=== PATIENT | female | born 1970 | race Caucasian/White ===

== ENCOUNTER 2018-08-29 11:50 | Emergency (ER) | payer OTHER ==
[~2018-08-29] VITALS: Ht 154.9 cm; Wt 91.7 kg
[2018-08-29 11:54] VITALS: BP 134/67
[2018-08-29] MEDS: KETOROLAC 60 MG/2 ML VIAL IM ONE (12:36)
[2018-08-29 13:26] VITALS: BP 125/69
== END 2018-08-29 13:26 | disposition home or self-care (01) ==
LOC: MED 11:50
DX: M54.6 Pain in thoracic spine (principal)
CPT/HCPCS: 71045; 96372; 99283; J1885; Q0092; 99284

== ENCOUNTER 2018-12-08 14:34 | Emergency (ER) | payer MEDICAID, OTHER ==
[~2018-12-08] VITALS: Ht 160 cm; Wt 74.8 kg
[2018-12-08 14:47] VITALS: BP 132/93
--- NOTE | 2018-12-08 16:07 | NUR ---
PT TO ER BED 3
--- NOTE | 2018-12-08 16:15 | NUR ---
47Y/F BIB EMS FROM HOME FOR URINARY BURNING AND PAIN. PT STATES SHE HAS PAIN SINCE YESTERDAY WITH URINE FREQ. 10/10 PAIN SCALE, + BLEEDING WITH FLANK PAIN. PT IS AAOX4, VSS AT THIS TIME, BED DOWN, BEDRAIL UP X 1, ER MD AWARE AND NOTIFIED OF PT STATUS.
[2018-12-08] MEDS ORDERED: KETOROLAC 30 MG/ML VIAL IM ONE (16:50)
[2018-12-08] MEDS ORDERED: cefTRIAXone 1,000 MG in LIDOCAINE MPF 1% - 5 mL VIAL 2.1 ML IM ONE (16:50)
--- NOTE | 2018-12-08 16:50 | NUR ---
Patient being evaluated by physician at bedside.
--- NOTE | 2018-12-08 17:28 | NUR ---
pt taken to ct
--- NOTE | 2018-12-08 17:38 | NUR ---
PT BACK FROM CT
--- NOTE | 2018-12-08 18:43 | NUR ---
Patient discharged with v/s stable. Written and verbal after care instructions given and explained. Patient alert, oriented and verbalized understanding of instructions. Ambulatory with steady gait. All questions addressed prior to discharge. ID band removed. Patient advised to follow up with PMD. Rx of keflex, tramadol, tylenol given. Patient educated on indication of medication including possible reaction and side effects. Opportunity to ask questions provided and answered.
[2018-12-08 18:44] VITALS: BP 130/90
== END 2018-12-08 18:43 | disposition home or self-care (01) ==
LOC: MED 14:34
DX: N39.0 Urinary tract infection, site not specified (principal); M19.90 Unspecified osteoarthritis, unspecified site; L40.9 Psoriasis, unspecified; Z90.710 Acquired absence of both cervix and uterus
CPT/HCPCS: 74176; 81025; 87086; 87186; 96372; 99284; J0696; J1885; J2001

== ENCOUNTER 2020-07-28 15:18 | Emergency (ER) | payer OTHER ==
[~2020-07-28] VITALS: Ht 157.5 cm; Wt 93.5 kg
[2020-07-28 15:20] VITALS: BP 129/94
[2020-07-28] MEDS ORDERED: SULFAMETH/TRIMETH DS 800/160MG 1 TAB PO ONE (15:55)
[2020-07-28] MEDS ORDERED: [UNRECOGNIZED DRUG - OTHER] INJ ONE (15:55)
[2020-07-28] MEDS ORDERED: cephALEXin 500 MG CAP PO ONE (15:55)
[2020-07-28] MEDS ORDERED: LIDOCAINE MPF 1% 0 ML ONE (15:59)
[2020-07-28] MEDS ORDERED: LIDOCAINE/EPI 1% 1:100000 20 ML VIAL INJ ONE (16:18)
[2020-07-28 16:36] VITALS: BP 129/84
== END 2020-07-28 16:38 | disposition home or self-care (01) ==
LOC: MED 15:18
DX: L02.91 Cutaneous abscess, unspecified (principal); L40.9 Psoriasis, unspecified; M19.90 Unspecified osteoarthritis, unspecified site; Z90.711 Acquired absence of uterus with remaining cervical stump; Z98.890 Other specified postprocedural states
CPT/HCPCS: 10060; 99284; J2001

== ENCOUNTER 2020-11-04 14:49 | Emergency (ER) | payer OTHER ==
[~2020-11-04] VITALS: Ht 154.9 cm; Wt 97.1 kg
[2020-11-04] MEDS ORDERED: IBUPROFEN 600 MG TAB PO ONE (14:55)
[2020-11-04 14:56] VITALS: BP 137/65
[2020-11-04 15:40] VITALS: BP 137/65
== END 2020-11-04 15:41 | disposition home or self-care (01) ==
LOC: MED 14:49
DX: S93.491A Sprain of other ligament of right ankle, initial encounter (principal); R03.0 Elevated blood-pressure reading, without diagnosis of hypertension; X50.9XXA Other and unspecified overexertion or strenuous movements or postures, initial encounter; Y93.89 Activity, other specified; Y92.89 Other specified places as the place of occurrence of the external cause; Y99.8 Other external cause status
CPT/HCPCS: 73610; 99283

== ENCOUNTER 2021-08-28 09:34 | Emergency (ER) | payer OTHER ==
[~2021-08-28] VITALS: Ht 151.1 cm; Wt 81.8 kg
[2021-08-28 09:38] VITALS: BP 147/80
--- NOTE | 2021-08-28 09:43 | NUR ---
PATIENT AMBULATED TO BED 4.
--- NOTE | 2021-08-28 10:01 | NUR ---
50 Y FEMALE FROM HOME WITH C/O RIGHT BREAST PAIN X YESTERDAY. PT STATED "SHE STARTED TO EXERPINCE THE BREAST PAIN THIS AM AND TRIED TO MAKE AN MD APT, BUT THE PAIN WAS TOO MUCH." PAIN IS CURRENTLY 8/10 AND SHARP. UPON PALPATION NO LUMPS FELT ON R BREAST, AND MINOR LUMP FELT ON L BREAT. PT DENIES ANY NIPPLE DISCHARGE AT THIS TIME. PMH: HYSTERECTOMY, LUMP R BREAST NKA
--- NOTE | 2021-08-28 10:54 | NUR ---
20 G IV ESTABLISHED IN R AC. BLOOD WORK COLLECTED FROM IV AND HANDED TO ULTRASOUND SUPERVISOR MARCELLA
[2021-08-28] MEDS: MORPHINE SULFATE 4 MG/ML SYR IVP ONE (10:55)
[2021-08-28 11:18] LABS: BASOPHILS % (AUTO) 0.3 % (0.0-2.0); EOSINOPHILS % (AUTO) 0.4 % (0.0-4.0); HEMATOCRIT 40.9 % (36-48); HEMOGLOBIN 13.7 g/dL (12.0-16.0); LYMPHOCYTES # (AUTO) 3.5 K/uL (2.5-16.5); LYMPHOCYTES % (AUTO) 27.4 % (20.5-51.1); MEAN CORPUSCULAR HEMOGLOBIN 30 pg (27-31); MEAN CORPUSCULAR HGB CONC 34 g/dL (33-37); MEAN CORPUSCULAR VOLUME 89.8 fL (80-94); MONOCYTES # (AUTO) 0.7 K/uL (0.8-1.0); MONOCYTES % (AUTO) 5.6 % (1.7-9.3); NEUTROPHILS # (AUTO) 8.5 K/uL (1.8-7.7); NEUTROPHILS % (AUTO) 66.3 % (42.2-75.2); PLATELET COUNT (AUTO) 225 K/uL (140-450); RED BLOOD CELL COUNT(AUTO) 4.56 MIL/uL (4.20-5.40); RED CELL DISTRIBUTION WIDTH 14.4 % (11.6-13.7); WHITE BLOOD COUNT (AUTO) 12.8 K/uL (4.8-10.8)
[2021-08-28 11:31] LABS: ANION GAP 7.3 (8-16); CARBON DIOXIDE 32.7 mmol/L (21-32); CREATININE 0.7 mg/dL (0.6-1.3); TOTAL BILIRUBIN 0.4 mg/dL (0.0-1.0)
--- NOTE | 2021-08-28 11:32 | NUR ---
Patient appears to be resting comfortably in bed WITH EYES OPEN. Vital Signs within normal limits AND CHARTED. Respirations even and unlabored.
[2021-08-28] MEDS: NACL 0.9% 1,000 ML IV ONE (12:34)
[2021-08-28 14:22] VITALS: BP 125/76
--- NOTE | 2021-08-29 18:52 | NUR ---
LATE ENTRY- NORMAL SALINE 0.9% DISCONTINUED AT 1400
== END 2021-08-28 16:16 | disposition home or self-care (01) ==
LOC: MED 09:34
DX: N63.10 Unspecified lump in the right breast, unspecified quadrant (principal); R94.31 Abnormal electrocardiogram [ECG] [EKG]; R94.5 Abnormal results of liver function studies; R73.9 Hyperglycemia, unspecified; R59.0 Localized enlarged lymph nodes; Z90.710 Acquired absence of both cervix and uterus; Z98.890 Other specified postprocedural states
CPT/HCPCS: 36415; 71045; 76641; 80053; 84484; 85025; 93005; 96361; 96374; 99285; J2270; J7030; Q0092

== ENCOUNTER 2021-12-08 10:32 | Emergency (ER) | payer OTHER ==
[~2021-12-08] VITALS: Ht 157.5 cm; Wt 79.4 kg
[2021-12-08 10:39] VITALS: BP 136/89
--- NOTE | 2021-12-08 10:46 | NUR ---
Patient ambulated with steady gait to bed 1.
--- NOTE | 2021-12-08 10:50 | NUR ---
50/F AMBULATED TO BED 1, C/O DIZZINESS, SHAKINESS AND FACIAL SWELLING SINCE THURSDAY NIGHT. MEDHX: DENIES ALLERGIES: SOHA
--- NOTE | 2021-12-08 10:59 | NUR ---
LAB AT BED SIDE PERFORMING BLOOD DRAW
--- NOTE | 2021-12-08 11:05 | NUR ---
DR HUMPHREY AT BEDSIDE PERFORMING MSE
--- NOTE | 2021-12-08 11:08 | NUR ---
PT AMBULATED TO RESTROOM FOR URINE SAMPLE
--- NOTE | 2021-12-08 11:10 | NUR ---
EMT AYA AT BEDSIDE PERFORMING EKG
--- NOTE | 2021-12-08 11:13 | NUR ---
URINE WALKED DOWN TO LAB
--- NOTE | 2021-12-08 11:20 | NUR ---
PT TAKEN TO CT FOR HEAD CT BY PALLETISER OPERATOR VIA WC
[2021-12-08 11:27] LABS: BASOPHILS # (AUTO) 0.1 K/uL (0.00-0.22); BASOPHILS % (AUTO) 0.5 % (0.0-2.0); EOSINOPHILS # (AUTO) 0.1 K/uL (0-0.4); EOSINOPHILS % (AUTO) 0.9 % (0.0-4.0); HEMATOCRIT 39.7 % (36-48); HEMOGLOBIN 13.7 g/dL (12.0-16.0); LYMPHOCYTES # (AUTO) 4.5 K/uL (2.5-16.5); LYMPHOCYTES % (AUTO) 43.8 % (20.5-51.1); MEAN CORPUSCULAR HEMOGLOBIN 31 pg (27-31); MEAN CORPUSCULAR HGB CONC 35 g/dL (33-37); MEAN CORPUSCULAR VOLUME 89.1 fL (80-94); MONOCYTES # (AUTO) 0.5 K/uL (0.8-1.0); MONOCYTES % (AUTO) 5.3 % (1.7-9.3); NEUTROPHILS # (AUTO) 5.1 K/uL (1.8-7.7); NEUTROPHILS % (AUTO) 49.5 % (42.2-75.2); PLATELET COUNT (AUTO) 259 K/uL (140-450); RED BLOOD CELL COUNT(AUTO) 4.46 MIL/uL (4.20-5.40); RED CELL DISTRIBUTION WIDTH 12.9 % (11.6-13.7); WHITE BLOOD COUNT (AUTO) 10.3 K/uL (4.8-10.8)
--- NOTE | 2021-12-08 11:31 | NUR ---
PT BACK FROM CT SCAN, PT TOLERATED WELL, PT PLACED ON VSS MONITOR, BED LOCKED AND LOW.
[2021-12-08 11:48] LABS: ALBUMIN 3.2 g/dL (3.4-5.0); CARBON DIOXIDE 28.1 mmol/L (21-32); CREATININE 0.8 mg/dL (0.6-1.3); POTASSIUM 4.1 mmol/L (3.5-5.1); TOTAL BILIRUBIN 0.7 mg/dL (0.0-1.0)
[2021-12-08 12:17] LABS: APPEARANCE,URINE HAZY (CLEAR); BILIRUBIN,URINE 1+ (NEGATIVE); BLOOD, URINE NEGATIVE (NEGATIVE); LEUKOCYTE ESTERASE ,URINE NEGATIVE (NEGATIVE); NITRITE, URINE NEGATIVE (NEGATIVE); UGLUCOSE TRACE (NEGATIVE)
[2021-12-08 12:18] LABS: COLOR,URINE DARK YELLOW (YELLOW)
[2021-12-08 12:29] LABS: RBC,URINE 0-5 /HPF (0-5); WBC,URINE 0-5 /HPF (0-5)
[2021-12-08] MEDS ORDERED: NITR100C7 PO (13:44)
[2021-12-08] MEDS ORDERED: METF-1243 PO (13:45)
[2021-12-08 14:00] VITALS: BP 111/70
--- NOTE | 2021-12-08 14:00 | NUR ---
Patient discharged with v/s stable. Written and verbal after care instructions given and explained. Patient alert, oriented and verbalized understanding of instructions. Ambulatory with steady gait. All questions addressed prior to discharge. ID band removed. Patient advised to follow up with PMD. Rx of METFORMIN, MACROBID given. Patient educated on indication of medication including possible reaction and side effects. Opportunity to ask questions provided and answered.
== END 2021-12-08 14:00 | disposition home or self-care (01) ==
LOC: MED 10:32
DX: N39.0 Urinary tract infection, site not specified (principal); G43.909 Migraine, unspecified, not intractable, without status migrainosus
CPT/HCPCS: 36415; 70450; 71045; 76705; 80053; 81001; 84484; 85025; 87086; 93005; 99285; Q0092

== ENCOUNTER 2022-04-17 07:06 | Emergency (ER) | payer OTHER ==
[~2022-04-17] VITALS: Ht 157.5 cm; Wt 76.7 kg
[~2022-04-17 07:06] MED LIST: METF-1243 PO; NITR100C7 PO
[2022-04-17 07:26] VITALS: BP 123/80
--- NOTE | 2022-04-17 08:23 | NUR ---
51/F PRESENTS TO ED WITH C/O ABDOMINAL PAIN SINCE 5AM. PATIENT STATES SHE WAS GIVEN RX OF PANADOL BY HER PCP YESTERDAY FOR A CYST IN HER BREAST AND PAIN BEGAN SHORTLY AFTER TAKING. DENIES N/V/D OR URINARY SYMPTOMS.
[2022-04-17 08:37] LABS: APPEARANCE,URINE CLEAR (CLEAR); BILIRUBIN,URINE 1+ (NEGATIVE); BLOOD, URINE NEGATIVE (NEGATIVE); COLOR,URINE YELLOW (YELLOW); LEUKOCYTE ESTERASE ,URINE NEGATIVE (NEGATIVE); NITRITE, URINE NEGATIVE (NEGATIVE); UGLUCOSE 3+ (NEGATIVE)
--- NOTE | 2022-04-17 08:48 | NUR ---
PT AMBULATED TO ER BED 1
[2022-04-17 09:02] LABS: BASOPHILS # (AUTO) 0.1 K/uL (0.00-0.22); BASOPHILS % (AUTO) 0.4 % (0.0-2.0); EOSINOPHILS % (AUTO) 0.1 % (0.0-4.0); HEMATOCRIT 48.3 % (36-48); HEMOGLOBIN 15.6 g/dL (12.0-16.0); LYMPHOCYTES # (AUTO) 12.5 K/uL (2.5-16.5); LYMPHOCYTES % (AUTO) 34.4 % (20.5-51.1); MEAN CORPUSCULAR HEMOGLOBIN 28 pg (27-31); MEAN CORPUSCULAR HGB CONC 32 g/dL (33-37); MEAN CORPUSCULAR VOLUME 87.4 fL (80-94); MONOCYTES # (AUTO) 2.1 K/uL (0.8-1.0); MONOCYTES % (AUTO) 5.9 % (1.7-9.3); NEUTROPHILS # (AUTO) 21.5 K/uL (1.8-7.7); NEUTROPHILS % (AUTO) 59.2 % (42.2-75.2); PLATELET COUNT (AUTO) 352 K/uL (140-450); RED BLOOD CELL COUNT(AUTO) 5.53 MIL/uL (4.20-5.40)
[2022-04-17] MEDS ORDERED: PIPERACILLIN/TAZOBACTAM 3.375 GM VIAL IV ONE (09:05)
[2022-04-17 09:16] LABS: ALBUMIN 3.9 g/dL (3.4-5.0); ANION GAP 17.4 (8-16); CARBON DIOXIDE 22.3 mmol/L (21-32); CREATININE 0.9 mg/dL (0.6-1.3); POTASSIUM 4.7 mmol/L (3.5-5.1); TOTAL BILIRUBIN 0.7 mg/dL (0.0-1.0)
--- NOTE | 2022-04-17 09:30 | NUR ---
BLOOD DRAWN BY TECH. RDZ ESTABLISHED ON R AC.
--- NOTE | 2022-04-17 09:30 | NUR ---
HANDOFF REPORT GIVEN TO ANALI CULVER.
[2022-04-17] MEDS: MORPHINE SULFATE 4 MG/ML SYR IVP ONE ×2 (09:31→09:47)
[2022-04-17] MEDS: NACL 0.9% 1,000 ML IV ONE (09:31)
--- NOTE | 2022-04-17 09:31 | NUR ---
ASSUMED CARE OF PATIENT --- OBSERVED PATIENT WRITHING IN PAIN. MEDICATED PER ORDER.
[2022-04-17] MEDS: PIPERACILLIN/TAZOBACTAM 3.375 GM in DEXTROSE 5% 50 ML IV ONE (09:32)
--- NOTE | 2022-04-17 09:45 | NUR ---
PT STILL WRITHING IN PAIN - MD PAYNE AWARE. ORDERS RECEIVED.
[2022-04-17 09:51] LABS: WHITE BLOOD COUNT (AUTO) 36.3 K/uL (4.8-10.8)
[2022-04-17] MEDS ORDERED: GLIP10TE PO (10:20)
[2022-04-17] MEDS ORDERED: ASPI-1822 PO (10:20)
--- NOTE | 2022-04-17 10:20 | NUR ---
PT STILL REPORTING 10/10 PAIN, WRITHING IN BED. MD NOTIFED. ORDERS RECEIVED.
[2022-04-17] MEDS ORDERED: HYDROmorphone 1 MG/ML AMP ONE ×2 (10:24→14:29)
[2022-04-17] MEDS: HYDROmorphone PFS 2 MG/ML SYR IVP ONE ×3 (10:28→14:35)
--- NOTE | 2022-04-17 10:40 | NUR ---
PT IS ABLE TO REST COMFORTABLY -- NO LONGER WRITHING IN PAIN. RATES PAIN AT 5/10 TOLERABLE PER PATIENT.
[2022-04-17] MEDS ORDERED: DOPPLER MC ONE (12:31)
--- NOTE | 2022-04-17 15:55 | NUR ---
DURING ULTRASOUND PT BEGAN TO HAVE BREAKTHROUGH PAIN. NOTIFIED. ORDERS RECEVIED.
[2022-04-17] MEDS ORDERED: fentaNYL citrate 0.05 MG/ML VIAL ONE (16:00)
[2022-04-17] MEDS: fentaNYL citrate 0.05 MG/ML VIAL IVP ONE (16:03)
--- NOTE | 2022-04-17 16:20 | NUR ---
PT IS RESTING WITHOUT ANY COMPLAINT S/P FENTANYL ADMINISTRATION. DAUGHTER AT BEDISDE. ULTRASOUND ABLE TO BE COMPLETED WITHOUT ANY INCIDENT.
--- NOTE | 2022-04-17 17:55 | NUR ---
[facility] BEDSIDE FOR REPORT. Patient to be transferred to [facility]. Is being transferred due to INSURANCE. Receiving facility has accepting physician and available space. ER physician has signed transfer form. Patient or responsible alliance party has agreed to transfer and signed form. Patient belongings inventoried and will be sent with patient. Copy of nursing notes, lab reports, EKG, Physicians Orders and X-rays to be sent with patient. Report called to PALOMO YA at receiving facility. [facility] ambulance service has been called for transfer. ETA is NOW.
[2022-04-17 18:15] VITALS: BP 134/89
== END 2022-04-17 14:00 | disposition short-term general hospital (02) ==
LOC: MED 07:06
DX: K25.5 Chronic or unspecified gastric ulcer with perforation (principal); Z11.52 Encounter for screening for COVID-19; Z20.822 Contact with and (suspected) exposure to COVID-19
CPT/HCPCS: 36415; 74176; 76817; 80053; 81003; 81025; 83690; 84702; 84703; 85025; 87426; 96365; 96375; 96376; 99291; J1170; J2270; J2543; J3010; J7030; Q0092

== ENCOUNTER 2022-08-09 10:57 | Inpatient (IN) | payer OTHER ==
[~2022-08-09] VITALS: Ht 154.9 cm; Wt 79.4 kg
[~2022-08-09 10:57] MED LIST changes: +ASPI-1822 PO; +GLIP10TE PO; -METF-1243 PO; -NITR100C7 PO
[2022-08-09 12:16] VITALS: BP 142/87
[2022-08-09] MEDS ORDERED: OMEP40EC23 PO (12:26)
[2022-08-09 13:19] LABS: APPEARANCE,URINE CLEAR (CLEAR); BILIRUBIN,URINE NEGATIVE (NEGATIVE); BLOOD, URINE NEGATIVE (NEGATIVE); COLOR,URINE YELLOW (YELLOW); LEUKOCYTE ESTERASE ,URINE NEGATIVE (NEGATIVE); NITRITE, URINE NEGATIVE (NEGATIVE); UGLUCOSE NEGATIVE (NEGATIVE)
--- NOTE | 2022-08-09 13:26 | NUR ---
PT AMB TO ER BED 11
--- NOTE | 2022-08-09 13:26 | NUR ---
TO ER BED 11
[2022-08-09 13:48] LABS: BASOPHILS # (AUTO) 0.1 K/uL (0.00-0.22); BASOPHILS % (AUTO) 0.9 % (0.0-2.0); EOSINOPHILS # (AUTO) 0.2 K/uL (0-0.4); EOSINOPHILS % (AUTO) 2.6 % (0.0-4.0); HEMOGLOBIN 14.2 g/dL (12.0-16.0); LYMPHOCYTES # (AUTO) 2.6 K/uL (2.5-16.5); LYMPHOCYTES % (AUTO) 29.2 % (20.5-51.1); MEAN CORPUSCULAR HEMOGLOBIN 29 pg (27-31); MEAN CORPUSCULAR HGB CONC 34 g/dL (33-37); MEAN CORPUSCULAR VOLUME 84.4 fL (80-94); MONOCYTES # (AUTO) 0.5 K/uL (0.8-1.0); MONOCYTES % (AUTO) 5.8 % (1.7-9.3); NEUTROPHILS # (AUTO) 5.5 K/uL (1.8-7.7); NEUTROPHILS % (AUTO) 61.5 % (42.2-75.2); PLATELET COUNT (AUTO) 251 K/uL (140-450); RED BLOOD CELL COUNT(AUTO) 4.97 MIL/uL (4.20-5.40); WHITE BLOOD COUNT (AUTO) 8.9 K/uL (4.8-10.8)
[2022-08-09] MEDS ORDERED: NACL 0.9% 1,000 ML IV ONE ×2 (13:50→16:35)
[2022-08-09] MEDS ORDERED: MORPHINE SULFATE 10 MG/ML VIAL IVP ONE ×2 (13:50→16:10)
[2022-08-09] MEDS ORDERED: ONDANSETRON 4 MG/2 ML VIAL IVP ONE ×2 (13:50→16:35)
--- NOTE | 2022-08-09 14:20 | NUR ---
51 y/o female, c/o abd pain near sx site. pt states she had sx done on 04/17/22 for peptic ulcer repair. pt states she has been having increased pain with tenderness around site. pt states she has been trying to take tylenol, no relief. denies cough, sob, cp, fever, chills, n/v/d. a&ox4, mongolian speaking, ambulates with assist. pmh: dm2 nka med: prilosec, glipizide
[2022-08-09 14:21] LABS: ANION GAP 14.7 (8-16); CARBON DIOXIDE 28.5 mmol/L (21-32); CREATININE 0.7 mg/dL (0.6-1.3); POTASSIUM 4.2 mmol/L (3.5-5.1); TOTAL BILIRUBIN 0.6 mg/dL (0.0-1.0)
[2022-08-09 14:53] LABS: PROTHROMBIN TIME 9.6 secs (10.8-13.4)
--- NOTE | 2022-08-09 16:24 | NUR ---
Patient appears to be resting comfortably in bed. Vital Signs within normal limits. Respirations even and unlabored.
[2022-08-09] MEDS ORDERED: cefTRIAXone 1,000 MG VIAL ONE (16:42)
[2022-08-09] MEDS ORDERED: ACETAMINOPHEN 325 MG TAB PO PRN (17:55)
[2022-08-09] MEDS ORDERED: MORPHINE SULFATE 2 MG/ML SYR IVP PRN (17:55)
[2022-08-09] MEDS ORDERED: LORazepam 2 MG/ML VIAL IVP PRN (17:55)
[2022-08-09] MEDS ORDERED: DEXTROSE 50% 50 ML SYR IVP PRN (18:00)
[2022-08-09] MEDS ORDERED: ATOR40TA PO (18:17)
--- NOTE | 2022-08-09 18:47 | NUR ---
Patient will be admitted to care of Tavo CULVER. Admitted to Telemetry. Will go to room 121A. Belongings list completed. Report to Evie CULVER.
[2022-08-09 19:00] VITALS: BP 149/81
--- NOTE | 2022-08-09 19:11 | NUR ---
Recieved pt. from ED in stable condition. Endorsed next shift to f/u with lactic acid 2.5 and orders.
--- NOTE | 2022-08-09 19:25 | NUR ---
RECEIVED REPORT FROM DAY SHIFT NURSE. PATIENT IN BED WITH ONGOING ABDOMINAL ULTRASOUND. NO COMPLAINTS OF PAIN AT THIS TIME. ON ROOM AIR. ALL SAFETY PRECAUTIONS ARE IN PLACE. CALL LIGHT WITHIN REACH. WILL CONTINUE TO MONITOR PT.
--- NOTE | 2022-08-09 20:46 | NUR ---
CRITICAL ABNORMAL LAB LACTIC ACID 2.[address] REPORTED [address] DEREK[address] KELLIE ROWE FOR FIRST RESULT OF LACTIC ACID OF 2.5 WITH ORDERS NOTED AND CARRIED OUT.
[2022-08-09] MEDS: NACL 0.9% 1,000 ML IV SCH (21:21)
[2022-08-09] MEDS: BLOOD GLUCOSE MONITORING 1 DEV DEV FS SCH (21:21)
[2022-08-09] MEDS: INSULIN LISPRO SLIDING SCALE 100 UNITS/ML VIAL SUBQ PRN (21:23)
[2022-08-09] MEDS: HYDROcodone/APAP 5/325 MG 1 TAB TAB PO PRN (21:39)
[2022-08-10] VITALS: BP 122/85
--- NOTE | 2022-08-10 01:51 | NUR ---
CHECKED ON PATIENT, PT SLEEPING BREATHING NORMAL WITH SYMMETRICAL RISE AND FALL OF THE CHEST. CALL LIGHT WITHIN REACH.
[2022-08-10] MEDS: HYDROcodone/APAP 5/325 MG 1 TAB TAB PO PRN ×3 (05:03→19:48)
[2022-08-10 05:27] LABS: BASOPHILS # (AUTO) 0.1 K/uL (0.00-0.22); BASOPHILS % (AUTO) 0.7 % (0.0-2.0); EOSINOPHILS # (AUTO) 0.2 K/uL (0-0.4); EOSINOPHILS % (AUTO) 1.9 % (0.0-4.0); HEMATOCRIT 36.4 % (36-48); HEMOGLOBIN 11.9 g/dL (12.0-16.0); LYMPHOCYTES # (AUTO) 2.5 K/uL (2.5-16.5); LYMPHOCYTES % (AUTO) 30.2 % (20.5-51.1); MEAN CORPUSCULAR HEMOGLOBIN 28 pg (27-31); MEAN CORPUSCULAR HGB CONC 33 g/dL (33-37); MONOCYTES # (AUTO) 0.5 K/uL (0.8-1.0); MONOCYTES % (AUTO) 5.8 % (1.7-9.3); NEUTROPHILS % (AUTO) 61.4 % (42.2-75.2); PLATELET COUNT (AUTO) 226 K/uL (140-450); RED BLOOD CELL COUNT(AUTO) 4.29 MIL/uL (4.20-5.40); RED CELL DISTRIBUTION WIDTH 15.2 % (11.6-13.7); WHITE BLOOD COUNT (AUTO) 8.2 K/uL (4.8-10.8)
[2022-08-10 05:30] LABS: ALBUMIN 2.5 g/dL (3.4-5.0); ANION GAP 11.5 (8-16); CARBON DIOXIDE 29.7 mmol/L (21-32); CREATININE 0.6 mg/dL (0.6-1.3); MAGNESIUM 1.4 mg/dL (1.8-2.4); POTASSIUM 4.2 mmol/L (3.5-5.1); TOTAL BILIRUBIN 0.5 mg/dL (0.0-1.0)
[2022-08-10] MEDS: BLOOD GLUCOSE MONITORING 1 DEV DEV FS SCH ×4 (06:34→20:53)
[2022-08-10] MEDS: NACL 0.9% 1,000 ML IV SCH ×2 (06:47→16:30)
--- NOTE | 2022-08-10 07:16 | NUR ---
GAVE REPORT TO DAY SHIFT NURSE ADZ FOR CONTINUITY OF CARE.
[2022-08-10 08:00] VITALS: BP 128/68
[2022-08-10] MEDS: PANTOPRAZOLE 40 MG INJ VIAL IVP SCH (08:32)
[2022-08-10] MEDS: ENOXAPARIN 40 MG/0.4 ML SYR SUBQ SCH (08:38)
[2022-08-10] MEDS: INSULIN LISPRO SLIDING SCALE 100 UNITS/ML VIAL SUBQ PRN ×3 (11:48→20:55)
[2022-08-10 12:00] VITALS: BP 128/68
[2022-08-10] MEDS: ONDANSETRON 4 MG/2 ML VIAL IVP PRN (12:46)
[2022-08-10 16:00] VITALS: BP 114/82
--- NOTE | 2022-08-10 19:10 | NUR ---
RECEIVED PT FROM DAY SHIFT NURSE SAYDA. PT IN BED, AWAKE. RESPIRATIONS EVEN AND UNLABORED ON RA. NO DISTRESS NOTED. A&O4, ABLE TO COMMUNICATE NEEDS. SKIN IS INTACT, WARM AND DRY TO TOUCH. IV SITE ON LAC 20G, INFUSING NS AT 100ML/HR. CALL LIGHT WITHIN REACH. SAFETY PRECAUTIONS IN PLACE.
--- NOTE | 2022-08-10 19:48 | NUR ---
PT COMPLAINED OF ABDOMINAL PAIN. PRN PAIN MED ADMINISTERED. PT TOLERATED WELL.
[2022-08-10 20:00] VITALS: BP 132/78
--- NOTE | 2022-08-10 20:56 | NUR ---
BLOOD SUGAR CHECK DONE. SLIDING SCALE INSULIN ADMINISTERED.
--- NOTE | 2022-08-10 20:59 | NUR ---
Patient's Plan of Care was discussed and reviewed with STAVE GRADER: KEM HARRIS
--- NOTE | 2022-08-11 00:40 | NUR ---
PT ASLEEP. NO DISTRESS NOTED. BREATHING EVEN AND UNLABORED. SAFETY PRECAUTIONS IN PLACE. PT CONTINUOUSLY MONITORED.
[2022-08-11] MEDS: NACL 0.9% 1,000 ML IV SCH (01:03)
[2022-08-11] MEDS: HYDROcodone/APAP 5/325 MG 1 TAB TAB PO PRN ×3 (03:14→13:07)
--- NOTE | 2022-08-11 03:17 | NUR ---
PT COMPLAINED OF AMBROSE 03/21. PT STATED THAT HER AMBROSE IS HORRIBLE AND THAT IT MAKES HER STAY AWAKE. PRN PAIN MED ADMINISTERED.
[2022-08-11 04:00] VITALS: BP 127/85
--- NOTE | 2022-08-11 06:42 | NUR ---
BLOOD SUGAR CHECK DONE. NO COVERAGE NEEDED. PT WENT BACK TO SLEEP. NO COMPLAINTS OF PAIN AT THIS TIME. NO DISTRESS NOTED.
[2022-08-11] MEDS: BLOOD GLUCOSE MONITORING 1 DEV DEV FS SCH ×2 (06:44→11:44)
--- NOTE | 2022-08-11 07:12 | NUR ---
ENDORSED PT TO DAY SHIFT NURSE FOR CONTINUITY OF CARE. ALL NEEDS MET THROUGHOUT SHIFT. PT IS STABLE.
[2022-08-11 08:00] VITALS: BP 152/67
[2022-08-11] MEDS: PANTOPRAZOLE 40 MG INJ VIAL IVP SCH (08:54)
[2022-08-11] MEDS: ONDANSETRON 4 MG/2 ML VIAL IVP PRN (08:54)
[2022-08-11] MEDS: ENOXAPARIN 40 MG/0.4 ML SYR SUBQ SCH (09:02)
--- NOTE | 2022-08-11 10:27 | NUR ---
PATIENT HAS BEEN SCREENED AND CATEGORIZED LOW NUTRITION RISK. PATIENT WILL BE SEEN WITHIN 7 DAYS OF ADMISSION. 08/16/22 REVIEW[address] BY SAI S[address]
[2022-08-11] MEDS: INSULIN LISPRO SLIDING SCALE 100 UNITS/ML VIAL SUBQ PRN (11:49)
[2022-08-11] MEDS ORDERED: ACET-8386 PO (13:48)
--- NOTE | 2022-08-11 14:30 | NUR ---
DC PLANNING SW MET WITH PT AT BEDSIDE TO COMPLETE ASSESSMENT. PATIENT REPORTS RESIDING AT HOME WITH HER FAMILY IN A SECOND FLOOR APT. PATIENT IDENTIFIES FREDDY VILLEGAS, SPOUSE, AND BRYAN RUBIO, DAUGHTER, EMERGENCY CONTACTS. PATIENT DENIES HAVING AD IN PLACE AND ACCEPTED AD OFFERED BY SW. PATIENT REPORTS MEETING WITH PCP NEEDED, LAST VISIT; LAST MONTH. PATIENT REPORTS MEDICATION COMPLIANCE AND DENIES BARRIERS IN ACCESS TO NEEDED MEDICATIONS.PATIENT REPORTS RECEIVING MEDICATION FROM [facility] ON [address] IN [place], WHEN NEEDED. PATIENT REPORTS BEING INDEPENDENT IN ALL ACTIVITIES AND DENIES USE OF DME. PATIENT COMPLETES ALL ADLS INDEPENDENTLY. PT DENIES MH/HAWTHORNE HX. PATIENT REPORTS HX OF DIABETES THAT SHE REPORTS IS WELL MANAGED AND REPORTS NUTRITION COMPLIANCE. PT REPORTS HX OF SNF PLACEMENT IN April AND REPORTS SHE WAS WITH FACILITY FOR 1 WEEK BEFORE BEING DC HOME WITH HH THAT WAS ARRANGED BY TEAGAN CABRAL. PATIENT REPORTS RECEIVING HH SERVICES FROM APRIL- MAY. PT REPORTS ADEQUATE FAMILY SUPPORT. PT REPORTS DC PLAN IS TO RETURN HOME WITH FAMILY PROVIDING TRANSPORTATION WHEN MEDICALLY STABLE. SW INQUIRED ON RESOURCES NEEDED, PATIENT DECLINE AT THIS TIME.
[2022-08-11 14:39] VITALS: BP 142/70
--- NOTE | 2022-08-11 15:00 | NUR ---
PT.DISCHARGED HOME. INSTRUCTIONS GIVEN. ACCOMPANIED BY DAUGHTER. STABLE UPON DISCHARGE.
== END 2022-08-11 15:10 | disposition home or self-care (01) | DRG 241 ==
LOC: MED 10:57 → MTU 17:54
PROVIDERS: ADMIT Internal Medicine; ATTEND Internal Medicine
DX: K29.70 Gastritis, unspecified, without bleeding (principal); R65.10 Systemic inflammatory response syndrome (SIRS) of non-infectious origin without acute organ dysfunction; K76.0 Fatty (change of) liver, not elsewhere classified; K44.9 Diaphragmatic hernia without obstruction or gangrene; E11.9 Type 2 diabetes mellitus without complications; E66.9 Obesity, unspecified; E83.42 Hypomagnesemia; Z60.2 Problems related to living alone; R74.01 Elevation of levels of liver transaminase levels; I10 Essential (primary) hypertension; Z90.710 Acquired absence of both cervix and uterus; Z68.33 Body mass index [BMI] 33.0-33.9, adult; Z79.899 Other long term (current) drug therapy; Z79.82 Long term (current) use of aspirin; K46.9 Unspecified abdominal hernia without obstruction or gangrene
CPT/HCPCS: 36415; 74021; 76705; 80053; 81003; 82948; 83605; 83690; 83735; 85025; 85610; 85730; 87040; 87081; 96365; 96375; 96376; 99285; C9113; J0696; J1650; J2270; J2405; J7030; Q0092; Q9967

== ENCOUNTER 2023-03-09 13:53 | Inpatient (IN) | payer OTHER ==
[~2023-03-09] VITALS: Ht 154.9 cm; Wt 74.8 kg
[~2023-03-09 13:53] MED LIST changes: -ASPI-1822 PO; +ATOR40TA PO; +OMEP40EC23 PO
[2023-03-09 14:05] VITALS: BP 146/88
--- NOTE | 2023-03-09 14:08 | NUR ---
PT BIB AMBULANCE, PICKED UP FROM [facility] S/P FALL, MID TO LOW BACK PAIN 07/21, PT STATES SHE WAS WALKING OUTSIDE POOL AREA ON WET FLOOR AND FELL ON HER BUTTOCKS, DENIES LOC, NUMBNESS, LOSS OF SENSATION, NON RADIATING, DENIES RELIEF POST FENTANYL 100MCG GIVEN ON ROUTE, ZOFRAN 4MG GIVEN ON ROUTE, NO EVIDENT DEFORMITY. A&OX4, VISIBLE DISTRESS AND CRYING, ON WARNING ANALYST. SAFETY MAINTAINED. HX: HTN, DM, HDL NKA
--- NOTE | 2023-03-09 14:12 | NUR ---
52 Y/O FEMALE BIBA FROM [place], PT STATES SHE HAD A MECHANICAL FALL AT THE GYM, PT SLIPPED AND FELL AROUND POOL AREA AND IS NOW C/O LOW BACK PAIN, PER ARROWHEAD BASE, PT HAS L5 PAIN THAT RADIATES AND DOES NOT MEET TRAUMA. PT WAS GIVEN 50MCG OF FENTANYL INITIALLY WITH ZOFRAN 4MG, NO RELIEF, MEDICS GAVE ANOTHER 50MCG IVP (100MCG TOTAL) WITH PAIN STILL AT A 10/10. DENIES SYNCOPE, LOC. PMH: DM2, HTN NKA
[2023-03-09] MEDS ORDERED: ONDANSETRON 4 MG/2 ML VIAL IVP ONE (14:25)
[2023-03-09] MEDS ORDERED: MORPHINE SULFATE 10 MG/ML VIAL IVP ONE (14:25)
[2023-03-09] MEDS ORDERED: MORPHINE SULFATE 4 MG/ML SYR ONE (14:29)
[2023-03-09 15:06] LABS: BASOPHILS % (AUTO) 0.2 % (0.0-2.0); EOSINOPHILS % (AUTO) 0.2 % (0.0-4.0); HEMATOCRIT 37.5 % (36-48); HEMOGLOBIN 12.3 g/dL (12.0-16.0); LYMPHOCYTES # (AUTO) 4.5 K/uL (2.5-16.5); LYMPHOCYTES % (AUTO) 29.9 % (20.5-51.1); MEAN CORPUSCULAR HEMOGLOBIN 27 pg (27-31); MEAN CORPUSCULAR HGB CONC 33 g/dL (33-37); MEAN CORPUSCULAR VOLUME 82.2 fL (80-94); MONOCYTES # (AUTO) 0.8 K/uL (0.8-1.0); NEUTROPHILS # (AUTO) 9.8 K/uL (1.8-7.7); NEUTROPHILS % (AUTO) 64.7 % (42.2-75.2); PLATELET COUNT (AUTO) 304 K/uL (140-450); RED BLOOD CELL COUNT(AUTO) 4.56 MIL/uL (4.20-5.40); RED CELL DISTRIBUTION WIDTH 15.4 % (11.6-13.7); WHITE BLOOD COUNT (AUTO) 15.2 K/uL (4.8-10.8)
[2023-03-09 15:22] LABS: ALBUMIN 3.4 g/dL (3.4-5.0); ANION GAP 15.9 (8-16); CARBON DIOXIDE 25.5 mmol/L (21-32); CREATININE 1.1 mg/dL (0.6-1.3); POTASSIUM 4.4 mmol/L (3.5-5.1); TOTAL BILIRUBIN 0.4 mg/dL (0.0-1.0)
[2023-03-09 15:35] LABS: PROTHROMBIN TIME 9.7 secs (10.8-13.4)
[2023-03-09] MEDS ORDERED: diphenhydrAMINE 50 MG/ML VIAL IVP ONE (16:15)
[2023-03-09] MEDS ORDERED: METOCLOPRAMIDE 10 MG/2 ML INJ VIAL IVP ONE (16:15)
--- NOTE | 2023-03-09 16:15 | NUR ---
PT ONE EPOSIDE OF EMESIS, AWARE.
--- NOTE | 2023-03-09 18:07 | NUR ---
The patient's care was reviewed and supervised by ED Agency Nurse 8, RN, RN.
--- NOTE | 2023-03-09 19:00 | NUR ---
PT STATES HER PAIN IS 0/10, AWAKE, CALM, KNITTING. PT INFORMED OF ADMIT TO MED/SURT
[2023-03-09] MEDS ORDERED: LISI5TAB24 PO (19:10)
[2023-03-09] MEDS ORDERED: ATOR20TA40 PO (19:10)
[2023-03-09] MEDS ORDERED: METF-352 PO (19:10)
[2023-03-09] MEDS ORDERED: GLIP10TA12 PO (19:10)
[2023-03-09] MEDS ORDERED: ROSU40TA19 PO (19:15)
--- NOTE | 2023-03-09 19:22 | NUR ---
REPORT GIVEN TO JNIG
--- NOTE | 2023-03-09 20:24 | NUR ---
ADMISSION ORDERS FOR TELE. PENDING BED ASSIG. FOOD PROVIDED TO PT. PT IS A&OX4. ON BEDSIDE MEDICAL I D SALES. RESP EVEN AND UNLABORED.
--- NOTE | 2023-03-09 21:04 | NUR ---
PAGE OUT TO DR MARTÍNEZ FOR PAIN MEDS . 06/21 PAIN
[2023-03-09] MEDS ORDERED: guaiFENesin DM 200/20 MG-10 ML 10 ML UDC PO PRN (21:25)
[2023-03-09] MEDS ORDERED: ONDANSETRON 4 MG/2 ML VIAL IM/IVP PRN (21:25)
[2023-03-09] MEDS ORDERED: POTASSIUM CHLORIDE 10 MEQ TABER PO PRN (21:25)
[2023-03-09] MEDS ORDERED: ZOLPIDEM 5 MG TAB PO PRN ×2 (21:25→23:35)
[2023-03-09] MEDS ORDERED: DOCUSATE SODIUM 100 MG GELCAP PO PRN (21:25)
[2023-03-09] MEDS ORDERED: ACETAMINOPHEN 325 MG TAB PO PRN ×2 (21:25→23:35)
[2023-03-09] MEDS ORDERED: NACL 0.9% 1,000 ML IV SCH (21:25)
[2023-03-09] MEDS ORDERED: HYDROcodone/APAP 7.5/325 MG 1 TAB PO PRN (21:25)
[2023-03-09] MEDS ORDERED: HYDROmorphone 1 MG/ML AMP IVP PRN (21:25)
[2023-03-09] MEDS ORDERED: MORPHINE SULFATE 2 MG/ML SYR IVP PRN (21:30)
[2023-03-09 22:03] LABS: CHOL/HDL RATIO 2.6 (1-4.5); FREE T4 (FREE THYROXINE) 1.27 ng/dL (0.76-1.46); MAGNESIUM 1.8 mg/dL (1.8-2.4); THYROID STIMULATING HORMONE 2.8 uIU/mL (0.34-3.74)
--- NOTE | 2023-03-09 23:12 | NUR ---
PAIN LEVEL 5/10 AFTER PAIN MEDS. HOSPITAL TRANSFER FROM [facility]. PT IS ON MONITOR. PENDING BED ASSIG FOR [facility]
[2023-03-09] MEDS ORDERED: ONDANSETRON 4 MG/2 ML VIAL IVP PRN (23:35)
[2023-03-09] MEDS ORDERED: HYDROcodone/APAP 5/325 MG 1 TAB TAB PO PRN (23:35)
--- NOTE | 2023-03-10 01:15 | NUR ---
Patient asleep and comfortable in bed.
--- NOTE | 2023-03-10 03:00 | NUR ---
Patient awake and comfortable in bed. Pain at 5/10.
[2023-03-10] MEDS: MORPHINE SULFATE 4 MG/ML SYR IVP PRN ×5 (04:18→22:43)
--- NOTE | 2023-03-10 05:42 | NUR ---
Patient asleep and comfortable in bed.
--- NOTE | 2023-03-10 06:14 | NUR ---
LAB AT BEDSIDE
[2023-03-10 06:46] LABS: BASOPHILS % (AUTO) 0.2 % (0.0-2.0); EOSINOPHILS % (AUTO) 0.3 % (0.0-4.0); HEMATOCRIT 33.3 % (36-48); HEMOGLOBIN 10.9 g/dL (12.0-16.0); LYMPHOCYTES # (AUTO) 2.5 K/uL (2.5-16.5); LYMPHOCYTES % (AUTO) 20.3 % (20.5-51.1); MEAN CORPUSCULAR HEMOGLOBIN 27 pg (27-31); MEAN CORPUSCULAR HGB CONC 33 g/dL (33-37); MONOCYTES # (AUTO) 0.6 K/uL (0.8-1.0); MONOCYTES % (AUTO) 4.7 % (1.7-9.3); NEUTROPHILS # (AUTO) 9.1 K/uL (1.8-7.7); NEUTROPHILS % (AUTO) 74.5 % (42.2-75.2); PLATELET COUNT (AUTO) 256 K/uL (140-450); RED BLOOD CELL COUNT(AUTO) 4.02 MIL/uL (4.20-5.40); RED CELL DISTRIBUTION WIDTH 15.2 % (11.6-13.7); WHITE BLOOD COUNT (AUTO) 12.2 K/uL (4.8-10.8)
--- NOTE | 2023-03-10 06:54 | NUR ---
BED ASSIG 126A READY AFTER SHIFT CHANGE.
[2023-03-10 06:59] LABS: ANION GAP 11.5 (8-16); CARBON DIOXIDE 28.1 mmol/L (21-32); CREATININE 0.8 mg/dL (0.6-1.3); POTASSIUM 4.6 mmol/L (3.5-5.1)
[2023-03-10 07:04] LABS: MAGNESIUM 1.9 mg/dL (1.8-2.4); PHOSPHORUS 3.2 mg/dL (2.5-4.9)
--- NOTE | 2023-03-10 07:26 | NUR ---
REPORT RECEIVED FROM JING
--- NOTE | 2023-03-10 07:35 | NUR ---
PT AWAKE AT REST, SAFETY MAINTAINED
--- NOTE | 2023-03-10 08:22 | NUR ---
Patient will be admitted to care of KEN TRINH. Admited to MED/SURG. Will go to room 126A. Belongings list completed. Report to NUSRAT CULVER.
--- NOTE | 2023-03-10 08:39 | NUR ---
PATIENT HAS BEEN SCREENED AND CATEGORIZED LOW NUTRITION RISK. PATIENT WILL BE SEEN WITHIN 7 DAYS OF ADMISSION. 03/16/[address]
[2023-03-10] MEDS ORDERED: PANTOPRAZOLE 40 MG TABEC PO SCH ×2 (09:00→12:44)
--- NOTE | 2023-03-10 09:00 | NUR ---
RECEIVED PT AT 0835H FROM ER FOR ADMISSION, PT'S VS WITHIN NORMAL LIMITS, NO COMPLAINTS OF PAIN, NO SIGN OF DISTRESS. ORIENTED TO THE PT'S ROOM, CALL LIGHT AND BED MECHANICS. WILL CONTINUE MONITOR. OZIEL
[2023-03-10] MEDS: DOCUSATE SODIUM 100 MG GELCAP PO SCH (10:15)
[2023-03-10 12:00] VITALS: BP 93/50
--- NOTE | 2023-03-10 12:22 | NUR ---
The patient's care was reviewed and supervised by Agency 03 ED, RN.
[2023-03-10 16:00] VITALS: BP 110/68
--- NOTE | 2023-03-10 16:22 | NUR ---
RECEIVED ORDER FOR PATIENT TO GET A TLSO BRACE FAXED ALL PAPERWORK TO [facility] AND [facility] Addendum: 03/11/23 at 1450 by JEANETH HANCOCK CM SPOKE WITH LORETO FROM [facility] AND CATARACT LENS GENERATOR WAS SENT OUT WITH BRALETITIA AT 1313. RECEIVED ORDER FOR PATIENT TO GET HOME HEALTH FOR PT. FAXED ALL PAPERWORK TO [facility] WAITING FOR PT TO BE DONE TO SEND NOTES. Addendum: 03/11/23 at 1701 by Zahra Rouse RN dc planning: FAXED THE FWW AND 3:1 COMMODE TO [facility] . INSURANCE WILL DELIVER AT HOME NOTIFIED PATIENT. CM TO FOLLOW Addendum: 03/12/23 at 1231 by JEANETH HANCOCK CM SPOKE WITH JODY FROM [facility] AND PATIENT WILL BE RECEIVING HOME HEALTH PT FROM [facility] WHO WILL BE CONTACTING THE PATIENT DIRECTLY.
[2023-03-10] MEDS ORDERED: DEXTROSE 50% 50 ML SYR IVP PRN (18:55)
[2023-03-10] MEDS ORDERED: INSULIN LISPRO SLIDING SCALE 100 UNITS/ML VIAL SUBQ PRN (18:55)
[2023-03-10 20:00] VITALS: BP 116/77
[2023-03-10] MEDS: ATORVASTATIN 20 MG TAB PO SCH (20:49)
--- NOTE | 2023-03-10 20:49 | NUR ---
ALL SCHEDULED MEDICATIONS ADMINISTERED. PATIENT IS AWAKE, ALERT VERBALLY RESPONSIVE. WELL RESTED. NO COMPLAINTS OF PAIN. REMINDED PATIENT TO USE CALL LIGHT, ASK FOR ASSISTANCE WHEN NEEDED. CALL LIGHT ON EASY REACH. BED WHEELS LOCKED IN LOW POSITION.
[2023-03-10] MEDS: glipiZIDE 10 MG TAB PO SCH (20:50)
[2023-03-10] MEDS: BLOOD GLUCOSE MONITORING 1 DEV DEV FS SCH (20:56)
[2023-03-11 04:00] VITALS: BP 117/76
[2023-03-11] MEDS: MORPHINE SULFATE 4 MG/ML SYR IVP PRN ×3 (04:33→15:41)
[2023-03-11 05:27] LABS: BASOPHILS # (AUTO) 0.1 K/uL (0.00-0.22); BASOPHILS % (AUTO) 0.5 % (0.0-2.0); EOSINOPHILS # (AUTO) 0.1 K/uL (0-0.4); EOSINOPHILS % (AUTO) 1.4 % (0.0-4.0); HEMATOCRIT 34.2 % (36-48); HEMOGLOBIN 11.6 g/dL (12.0-16.0); LYMPHOCYTES # (AUTO) 4.6 K/uL (2.5-16.5); LYMPHOCYTES % (AUTO) 42.6 % (20.5-51.1); MEAN CORPUSCULAR HEMOGLOBIN 28 pg (27-31); MEAN CORPUSCULAR HGB CONC 34 g/dL (33-37); MEAN CORPUSCULAR VOLUME 82.2 fL (80-94); MONOCYTES # (AUTO) 0.6 K/uL (0.8-1.0); MONOCYTES % (AUTO) 5.6 % (1.7-9.3); NEUTROPHILS # (AUTO) 5.4 K/uL (1.8-7.7); NEUTROPHILS % (AUTO) 49.9 % (42.2-75.2); PLATELET COUNT (AUTO) 235 K/uL (140-450); RED BLOOD CELL COUNT(AUTO) 4.16 MIL/uL (4.20-5.40); RED CELL DISTRIBUTION WIDTH 15.2 % (11.6-13.7); WHITE BLOOD COUNT (AUTO) 10.7 K/uL (4.8-10.8)
[2023-03-11 05:44] LABS: CREATININE 0.8 mg/dL (0.6-1.3)
[2023-03-11 06:01] LABS: MAGNESIUM 1.8 mg/dL (1.8-2.4); PHOSPHORUS 3.9 mg/dL (2.5-4.9)
[2023-03-11] MEDS: BLOOD GLUCOSE MONITORING 1 DEV DEV FS SCH ×3 (06:41→12:04)
[2023-03-11 08:00] VITALS: BP 116/74
[2023-03-11 08:08] LABS: T4 (THYROXINE) 8.3 ug/dL (4.5-12.0)
[2023-03-11] MEDS ORDERED: NON-FORMULARY ITEM (Omeprazole* (Prilosec*) 40 MG) PO SCH (09:00)
[2023-03-11] MEDS ORDERED: ROSUVASTATIN CALCIUM PO SCH (09:00)
[2023-03-11] MEDS: glipiZIDE 10 MG TAB PO SCH (09:00)
[2023-03-11] MEDS ORDERED: METFORMIN HCL PO SCH (09:00)
[2023-03-11] MEDS ORDERED: PANTOPRAZOLE 40 MG TABEC PO SCH (09:00)
[2023-03-11] MEDS ORDERED: metFORMIN 500 MG TAB PO SCH (09:00)
[2023-03-11] MEDS ORDERED: lisinopriL 5 MG TAB PO SCH (09:00)
[2023-03-11] MEDS: DOCUSATE SODIUM 100 MG GELCAP PO SCH (09:17)
[2023-03-11] MEDS: ATORVASTATIN 20 MG TAB PO SCH (09:17)
[2023-03-11 16:00] VITALS: BP 152/84
--- NOTE | 2023-03-11 17:20 | NUR ---
TLSO dropped off today. PT worked with patient. Pt discharged to home and stated that she didn't feel like she was ready until tomorrow. Notifed charge master specialist. RN bakery machine mechanic supervisor came and spoke with patient. Pt will be going home today. RFA PIV removed. Discharged instructions given.
== END 2023-03-11 17:15 | disposition home health service (06) | DRG 347 ==
LOC: MED 13:53 → MTU 18:45 → OBSVTOIN 23:35 → MMU 03-10 05:27
PROVIDERS: ADMIT Hospitalist; ATTEND Hospitalist
DX: S32.010A Wedge compression fracture of first lumbar vertebra, initial encounter for closed fracture (principal); E44.0 Moderate protein-calorie malnutrition; R65.10 Systemic inflammatory response syndrome (SIRS) of non-infectious origin without acute organ dysfunction; E11.9 Type 2 diabetes mellitus without complications; I10 Essential (primary) hypertension; Z20.822 Contact with and (suspected) exposure to COVID-19; E78.00 Pure hypercholesterolemia, unspecified; K76.9 Liver disease, unspecified; W18.30XA Fall on same level, unspecified, initial encounter; Y93.9 Activity, unspecified; Y92.89 Other specified places as the place of occurrence of the external cause; Y99.9 Unspecified external cause status; R74.01 Elevation of levels of liver transaminase levels; Z68.31 Body mass index [BMI] 31.0-31.9, adult
CPT/HCPCS: 36415; 71045; 72131; 80048; 80053; 82150; 82948; 83036; 83690; 83735; 83880; 84100; 84436; 84439; 84443; 84479; 85025; 85610; 85730; 87081; 96374; 96375; 97110; 97116; 97530; 99285; J1200; J1644; J2270; J2405; J2765; Q0092

== ENCOUNTER 2023-06-24 11:36 | Inpatient (IN) | payer OTHER ==
[~2023-06-24] VITALS: Ht 148.6 cm; Wt 74.8 kg
[~2023-06-24 11:36] MED LIST changes: +ATOR20TA40 PO; -ATOR40TA PO; +GLIP10TA12 PO; -GLIP10TE PO; +LISI5TAB24 PO; +METF-352 PO; +ROSU40TA19 PO
[2023-06-24 11:44] VITALS: BP 148/94; PULSE 78; RESP 20; TEMP 97.8; O2SAT 99
[2023-06-24 14:28] LABS: BASOPHILS # (AUTO) 0.1 K/uL (0.00-0.22); BASOPHILS % (AUTO) 0.3 % (0.0-2.0); EOSINOPHILS # (AUTO) 0.2 K/uL (0-0.4); EOSINOPHILS % (AUTO) 1.2 % (0.0-4.0); HEMOGLOBIN 11.3 g/dL (12.0-16.0); LYMPHOCYTES # (AUTO) 7.3 K/uL (2.5-16.5); LYMPHOCYTES % (AUTO) 42.5 % (20.5-51.1); MEAN CORPUSCULAR HEMOGLOBIN 25 pg (27-31); MEAN CORPUSCULAR HGB CONC 32 g/dL (33-37); MEAN CORPUSCULAR VOLUME 80.1 fL (80-94); MONOCYTES # (AUTO) 1.2 K/uL (0.8-1.0); MONOCYTES % (AUTO) 6.9 % (1.7-9.3); NEUTROPHILS # (AUTO) 8.4 K/uL (1.8-7.7); NEUTROPHILS % (AUTO) 49.1 % (42.2-75.2); PLATELET COUNT (AUTO) 359 K/uL (140-450); RED BLOOD CELL COUNT(AUTO) 4.49 MIL/uL (4.20-5.40); RED CELL DISTRIBUTION WIDTH 16.5 % (11.6-13.7); WHITE BLOOD COUNT (AUTO) 17.1 K/uL (4.8-10.8)
[2023-06-24 14:57] LABS: ALBUMIN 3.5 g/dL (3.4-5.0); ANION GAP 10.9 (8-16); CALCIUM 9.5 mg/dL (8.5-10.1); CARBON DIOXIDE 29.5 mmol/L (21-32); CREATININE 0.7 mg/dL (0.6-1.3); POTASSIUM 5.4 mmol/L (3.5-5.1); TOTAL BILIRUBIN 0.2 mg/dL (0.0-1.0); TOTAL PROTEIN, SERUM 7.3 g/dL (6.4-8.2)
[2023-06-24 15:00] VITALS: O2SAT 99
[2023-06-24 15:39] LABS: APPEARANCE,URINE CLEAR (CLEAR); BILIRUBIN,URINE NEGATIVE (NEGATIVE); BLOOD, URINE NEGATIVE (NEGATIVE); COLOR,URINE YELLOW (YELLOW); LEUKOCYTE ESTERASE ,URINE NEGATIVE (NEGATIVE); NITRITE, URINE NEGATIVE (NEGATIVE); PROTEIN,URINE NEGATIVE (NEGATIVE); UGLUCOSE NEGATIVE (NEGATIVE); UROBILINOGEN,URINE 0.2 EU/dL (0.2 - 1)
[2023-06-24] MEDS ORDERED: cefTRIAXone 1,000 MG VIAL ONE (16:00)
[2023-06-24] MEDS ORDERED: MORPHINE SULFATE 4 MG/ML SYR IVP ONE ×2 (16:00→19:35)
[2023-06-24 16:40] LABS: LACTIC ACID 1.7 mmol/L (0.4-2.0)
[2023-06-24] MEDS ORDERED: PANTOPRAZOLE 40 MG INJ VIAL IVP ONE (17:05)
[2023-06-24] MEDS: NACL 0.9% 1,000 ML IV SCH (19:35)
[2023-06-24] MEDS ORDERED: ONDANSETRON 4 MG/2 ML VIAL IVP PRN (19:35)
[2023-06-24] MEDS ORDERED: ACETAMINOPHEN 325 MG TAB PO PRN (19:35)
[2023-06-24] MEDS ORDERED: LORazepam 2 MG/ML VIAL IVP PRN (19:35)
[2023-06-24] MEDS ORDERED: DICYCLOMINE HCL LIQUID 20 MG, ALUMINUM HYD/MAG/SIMETHICONE 30 ML, LIDOCAINE VISCOUS 2% ... PO ONE ×3 (19:35)
[2023-06-24] MEDS ORDERED: DICYCLOMINE HCL LIQUID 10 MG/5 ML UDC ONE (19:36)
[2023-06-24] MEDS ORDERED: ALUMINUM HYD/MAG/SIMETHICONE 30 ML UDC ONE (19:36)
[2023-06-24 21:00] VITALS: PULSE 78; RESP 18; O2SAT 98
[2023-06-24 21:15] VITALS: BP 119/70; PULSE 78; RESP 18; TEMP 96.8; O2SAT 97
[2023-06-25] VITALS: BP 141/78; PULSE 93; RESP 18; TEMP 97.6; O2SAT 96
[2023-06-25] MEDS: NACL 0.9% 1,000 ML IV SCH ×4 (00:07→23:48)
[2023-06-25] MEDS: MORPHINE SULFATE 2 MG/ML SYR IVP PRN ×4 (00:32→21:44)
[2023-06-25 04:00] VITALS: BP 105/69; PULSE 79; RESP 18; TEMP 97.8; O2SAT 96
[2023-06-25 06:25] LABS: BASOPHILS # (AUTO) 0.1 K/uL (0.00-0.22); BASOPHILS % (AUTO) 0.5 % (0.0-2.0); EOSINOPHILS # (AUTO) 0.1 K/uL (0-0.4); EOSINOPHILS % (AUTO) 1.1 % (0.0-4.0); HEMATOCRIT 31.8 % (36-48); HEMOGLOBIN 10.3 g/dL (12.0-16.0); LYMPHOCYTES # (AUTO) 2.6 K/uL (2.5-16.5); LYMPHOCYTES % (AUTO) 28.2 % (20.5-51.1); MEAN CORPUSCULAR HEMOGLOBIN 26 pg (27-31); MEAN CORPUSCULAR HGB CONC 32 g/dL (33-37); MONOCYTES # (AUTO) 0.8 K/uL (0.8-1.0); MONOCYTES % (AUTO) 9.2 % (1.7-9.3); NEUTROPHILS # (AUTO) 5.6 K/uL (1.8-7.7); PLATELET COUNT (AUTO) 267 K/uL (140-450); RED BLOOD CELL COUNT(AUTO) 3.98 MIL/uL (4.20-5.40); RED CELL DISTRIBUTION WIDTH 16.5 % (11.6-13.7); WHITE BLOOD COUNT (AUTO) 9.2 K/uL (4.8-10.8)
[2023-06-25 06:48] LABS: ANION GAP 9.7 (8-16); CALCIUM 8.9 mg/dL (8.5-10.1); CARBON DIOXIDE 31.6 mmol/L (21-32); CREATININE 0.8 mg/dL (0.6-1.3); MAGNESIUM 1.8 mg/dL (1.8-2.4); POTASSIUM 4.3 mmol/L (3.5-5.1); TOTAL BILIRUBIN 0.2 mg/dL (0.0-1.0); TOTAL PROTEIN, SERUM 6.2 g/dL (6.4-8.2)
[2023-06-25 08:00] VITALS: BP 98/65; PULSE 76; RESP 17; TEMP 97; TEMP 97.3; O2SAT 97
[2023-06-25] MEDS: HYDROcodone/APAP 5/325 MG 1 TAB TAB PO PRN ×2 (17:03→23:03)
[2023-06-25 20:00] VITALS: PULSE 78; RESP 18; O2SAT 95
[2023-06-25] MEDS: PANTOPRAZOLE 40 MG INJ VIAL IVP SCH (20:15)
[2023-06-25 22:58] VITALS: BP 159/91; PULSE 84; RESP 20; O2SAT 92
[2023-06-25] MEDS ORDERED: MAG SULF 2000 MG/WATER PREMIX 50 ML IV PRN (23:35)
[2023-06-25] MEDS ORDERED: MAGNESIUM OXIDE 400 MG TAB PO PRN (23:35)
[2023-06-25] MEDS ORDERED: KCL 20 MEQ IN 100 mL PREMIX 200 ML IV PRN (23:35)
[2023-06-25] MEDS ORDERED: POTASSIUM CHLORIDE 10 MEQ TABER PO PRN (23:35)
[2023-06-26 04:00] VITALS: BP 135/87; PULSE 75; RESP 18; TEMP 97.1; O2SAT 96
[2023-06-26] MEDS: MORPHINE SULFATE 2 MG/ML SYR IVP PRN ×4 (05:40→19:48)
[2023-06-26 06:19] LABS: BASOPHILS # (AUTO) 0.1 K/uL (0.00-0.22); BASOPHILS % (AUTO) 0.7 % (0.0-2.0); EOSINOPHILS # (AUTO) 0.1 K/uL (0-0.4); EOSINOPHILS % (AUTO) 1.4 % (0.0-4.0); HEMATOCRIT 28.9 % (36-48); HEMOGLOBIN 9.5 g/dL (12.0-16.0); LYMPHOCYTES # (AUTO) 3.4 K/uL (2.5-16.5); LYMPHOCYTES % (AUTO) 37.4 % (20.5-51.1); MEAN CORPUSCULAR HEMOGLOBIN 26 pg (27-31); MEAN CORPUSCULAR HGB CONC 33 g/dL (33-37); MEAN CORPUSCULAR VOLUME 78.7 fL (80-94); MONOCYTES # (AUTO) 0.6 K/uL (0.8-1.0); MONOCYTES % (AUTO) 6.1 % (1.7-9.3); NEUTROPHILS # (AUTO) 4.9 K/uL (1.8-7.7); NEUTROPHILS % (AUTO) 54.4 % (42.2-75.2); PLATELET COUNT (AUTO) 228 K/uL (140-450); RED BLOOD CELL COUNT(AUTO) 3.68 MIL/uL (4.20-5.40); RED CELL DISTRIBUTION WIDTH 16.7 % (11.6-13.7); WHITE BLOOD COUNT (AUTO) 9.1 K/uL (4.8-10.8)
[2023-06-26 06:43] LABS: ALBUMIN 2.7 g/dL (3.4-5.0); ANION GAP 12.8 (8-16); CALCIUM 8.4 mg/dL (8.5-10.1); CARBON DIOXIDE 25.7 mmol/L (21-32); CREATININE 0.7 mg/dL (0.6-1.3); MAGNESIUM 1.7 mg/dL (1.8-2.4); POTASSIUM 3.5 mmol/L (3.5-5.1); TOTAL BILIRUBIN 0.3 mg/dL (0.0-1.0); TOTAL PROTEIN, SERUM 5.7 g/dL (6.4-8.2)
[2023-06-26 08:00] VITALS: PULSE 71; RESP 18; O2SAT 100
[2023-06-26] MEDS: PANTOPRAZOLE 40 MG INJ VIAL IVP SCH ×2 (10:05→20:08)
[2023-06-26 12:00] VITALS: BP 132/79; PULSE 71; RESP 18; TEMP 96.6; O2SAT 100
[2023-06-26] MEDS ORDERED: cefTRIAXone 1,000 MG VIAL ONE (19:56)
[2023-06-26 20:00] VITALS: BP 134/71; PULSE 86; RESP 18; TEMP 98.3; O2SAT 94
[2023-06-26] MEDS: NACL 0.9% 1,000 ML IV SCH (21:35)
[2023-06-27] MEDS: MORPHINE SULFATE 2 MG/ML SYR IVP PRN ×2 (01:36→09:25)
[2023-06-27] MEDS: NACL 0.9% 1,000 ML IV SCH (01:55)
[2023-06-27 04:00] VITALS: BP 139/79; PULSE 76; RESP 17; TEMP 96.8; O2SAT 96
[2023-06-27 05:54] LABS: BASOPHILS # (AUTO) 0.1 K/uL (0.00-0.22); BASOPHILS % (AUTO) 0.8 % (0.0-2.0); EOSINOPHILS # (AUTO) 0.1 K/uL (0-0.4); EOSINOPHILS % (AUTO) 1.7 % (0.0-4.0); HEMATOCRIT 29.1 % (36-48); HEMOGLOBIN 9.7 g/dL (12.0-16.0); LYMPHOCYTES % (AUTO) 36.1 % (20.5-51.1); MEAN CORPUSCULAR HEMOGLOBIN 26 pg (27-31); MEAN CORPUSCULAR HGB CONC 33 g/dL (33-37); MEAN CORPUSCULAR VOLUME 78.2 fL (80-94); MONOCYTES # (AUTO) 0.5 K/uL (0.8-1.0); MONOCYTES % (AUTO) 5.9 % (1.7-9.3); NEUTROPHILS # (AUTO) 4.6 K/uL (1.8-7.7); NEUTROPHILS % (AUTO) 55.5 % (42.2-75.2); PLATELET COUNT (AUTO) 210 K/uL (140-450); RED BLOOD CELL COUNT(AUTO) 3.72 MIL/uL (4.20-5.40); RED CELL DISTRIBUTION WIDTH 16.2 % (11.6-13.7); WHITE BLOOD COUNT (AUTO) 8.2 K/uL (4.8-10.8)
[2023-06-27 06:50] LABS: ALBUMIN 2.6 g/dL (3.4-5.0); ANION GAP 12.8 (8-16); CARBON DIOXIDE 25.8 mmol/L (21-32); CREATININE 0.6 mg/dL (0.6-1.3); MAGNESIUM 1.6 mg/dL (1.8-2.4); POTASSIUM 3.6 mmol/L (3.5-5.1); TOTAL BILIRUBIN 0.2 mg/dL (0.0-1.0); TOTAL PROTEIN, SERUM 5.7 g/dL (6.4-8.2)
[2023-06-27 08:00] VITALS: PULSE 94; RESP 17; O2SAT 94
[2023-06-27 08:03] VITALS: BP 139/79; PULSE 76; RESP 17; TEMP 96.8
[2023-06-27] MEDS: PANTOPRAZOLE 40 MG INJ VIAL IVP SCH (09:30)
[2023-06-27] MEDS ORDERED: ACET-9527 PO (12:24)
== END 2023-06-27 15:03 | disposition home or self-care (01) | DRG 243 ==
LOC: MED 11:36 → MMU 19:37 → MTU 21:00 → OBSVTOIN 06-25 12:37 → MMU 06-26 11:45
PROVIDERS: ADMIT Hospitalist; ATTEND Hospitalist
DX: K20.90 Esophagitis, unspecified without bleeding (principal); R65.10 Systemic inflammatory response syndrome (SIRS) of non-infectious origin without acute organ dysfunction; K29.00 Acute gastritis without bleeding; E87.5 Hyperkalemia; Z83.3 Family history of diabetes mellitus; Z82.49 Family history of ischemic heart disease and other diseases of the circulatory system
CPT/HCPCS: 96365; 96375; 96376; 99285; G0378; 36415; 71045; 80053; 81003; 83605; 83690; 83735; 83880; 84484; 85025; 87040; 87081; 87086; 93005; C9113; J0696; J1644; J2270; J7060; Q9967